=== PATIENT | female | born 1970 | race Caucasian/White ===

== ENCOUNTER 2024-03-11 15:55 | Outpatient (CLI) | payer OTHER, SELFPAY ==
--- NOTE | ~2024-03-11 | US_ITS ---
EXAMINATION: US pelvic complete w TV DATE: 03/11/2024 16:18 INDICATION: R10.2 - Pelvic and perineal pain TECHNIQUE: Multiple transabdominal and endovaginal sonographic images of the pelvis were obtained. COMPARISON: None. FINDINGS: Uterus: 8.5 x 3.7 x 4.4 cm. Endometrial complex measures 3 mm. Nabothian cysts. Right Ovary: Not visualized. No adnexal mass. Left Ovary: Not visualized. No adnexal mass. There is no free fluid in the pelvis. IMPRESSION: Bilateral ovaries not visualized, otherwise normal pelvic sonogram findings. Reviewed, dictated and finalized at location K.
== END 2024-03-11 15:56 ==
LOC: MICIMG 15:58
PROVIDERS: PCP Nurse Practitioner Obstetrics & Gynecology; Visit Provider Nurse Practitioner Obstetrics & Gynecology
DX: R10.2 Pelvic and perineal pain (principal)
CPT/HCPCS: 76830; 76856

== ENCOUNTER 2024-06-09 19:12 | Emergency (ER) | payer OTHER, SELFPAY ==
--- NOTE | ~2024-06-09 | XR_ITS ---
EXAMINATION: XR abdomen/kub 1V DATE: 06/09/2024 19:35 INDICATION: Upper abdominal pain. TECHNIQUE: A supine view of the abdomen on 2 radiographs was obtained. COMPARISON: None. FINDINGS: There are no dilated loops of bowel. There is a small volume of stool in the colon. Surgica l clips in the right upper quadrant are likely from cholecystectomy. Calcifications in the pelvis are likely phleboliths. IMPRESSION: 1. Normal bowel gas pattern. Reviewed, dictated and finalized at location A.
--- NOTE | 2024-06-09 19:14 | ED.ABDPAIN ---
HPI - Abdominal Pain General Chief Complaint: Abdominal Pain Stated Complaint: stomach pain Time Seen by Provider: 06/09/24 19:14 Source: patient Mode of arrival: ambulatory Limitations: no limitations History of Present Illness HPI narrative: Zoe is a 53-year-old female patient presenting to the clinic today with complaints of generalized abdominal pain. She reports that she has a history of gastroparesis. She reports over the last four days, she has had nausea and abdominal discomfort after eating. She denies any GERD symptoms. States that she developed some abdominal cramping that is improved after having a bowel movement. States that her symptoms are worse than what her normal gastroparesis symptoms are so she feels as though this may be something different. History of cholecystectomy in the past. Related Data Home Medications Medication Instructions Recorded Confirmed Saccharomyces boulardii 250 mg 250 mg PO BID 11/26/23 06/09/24 capsule (Daily Probiotic (S. boulardii)) levothyroxine 88 mcg tablet 88 mcg PO DAILY 11/26/23 06/09/24 (Levo-T) cholecalciferol (vitamin D3) 50 50 mcg PO DAILY 03/05/24 06/09/24 mcg (2,000 unit) capsule Allergies Allergy/AdvReac Type Severity Reaction Status Date / Time No Known Allergies Allergy Verified 06/09/24 19:13 Review of Systems Review of Systems: Pertinent positives per HPI. Patient denies any fever, chills, rash, headache, visual changes, dizziness, cough, runny nose, sore throat, shortness of breath, chest pain, palpitations, nausea, vomiting, diarrhea, constipation, or any urinary issues. [facility] Past Medical History Medical History Anxiety Elective GERD (gastroesophageal reflux disease) Thyroid disorder Surgical History Surgical History H/O breast surgery H/O tubal ligation History of cholecystectomy S/P endometrial ablation [place] teeth removed Family History Family History Other Cerebrovascular accident Depression Heart disease History of cancer Hypertension Social History Social History Smoking status: Never smoker Alcohol intake: current Substance use: never Substance use type: does not use Do You Feel Safe in your Home?: Yes Lack of Transportation: No Lack of Food: Never True Current Housing: I Have Housing Concerned About Future Housing: No Difficulty Paying Gas/Electric Bills: No Difficulty Paying for Meds: No Currently Unemployed: No Difficulty w/ Childcare or Family Care: No Comments At the time of my signature, I reviewed and agree with the nursing past medical, surgical, social, and family history. There is no relevant family history pertinent to the patient complaint. Exam Narrative: General: Well-developed, morbidly obese, in no apparent distress. Head: Normocephalic, atraumatic. Cardio: Regular rate and rhythm, s1 and s2 normal, no murmur appreciated. Resp: Clear to auscultation bilaterally, no rhonchi, rales, wheezing or rubs. Abdomen: Soft, pliable, bowel sounds present in all quadrants, generalized tender to palpation, no organomegly, no CVAT tenderness. Course Course Emergency Course: Portions of this record may have been created with voice recognition software. Level of Care: Express Care Visit Vital Signs Vital signs: Vital Signs Temperature 37.3 C 06/09/24 19:21 Pulse Rate 79 06/09/24 19:21 Respiratory Rate 16 06/09/24 19:21 Blood Pressure 155/81 H 06/09/24 19:21 Pulse Oximetry 99 06/09/24 19:21 Oxygen Delivery Room Air 06/09/24 19:21 Temperature 37.3 C 06/09/24 19:21 Pulse Rate 79 06/09/24 19:21 Respiratory Rate 16 06/09/24 19:21 Blood Pressure 155/81 H 06/09/24 19:21 Pulse Oximetry 99 06/09/24
[2024-06-09 19:21] VITALS: BP 155/81; PULSE 79; RESP 16; TEMP 37.3; O2SAT 99
== END 2024-06-09 19:50 | disposition home or self-care (01) ==
PROVIDERS: Emergency Provider Nurse Practitioner Family
DX: R10.84 Generalized abdominal pain (principal); R11.0 Nausea; K31.84 Gastroparesis; K21.9 Gastro-esophageal reflux disease without esophagitis; E07.9 Disorder of thyroid, unspecified
CPT/HCPCS: 74018; 99213; G0463